=== PATIENT | female | born 1985 | race Caucasian/White ===

== ENCOUNTER 2020-08-21 14:13 | Outpatient (REF) | payer OTHER, SELFPAY ==
[2020-08-21 17:24] LABS: Free T4 (Free Thyroxine) 0.88 ng/dL (0.71-1.85); Thyroid Stimulating Hormone 1.24 uIU/mL (0.32-4.0)
== END 2020-08-21 14:14 | disposition home or self-care (01) ==
LOC: HO.HMGCLDS 14:13
PROVIDERS: PCP Internal Medicine; Visit Provider Internal Medicine Endocrinology, Diabetes & Metabolism
DX: E03.8 Other specified hypothyroidism (principal)
CPT/HCPCS: 36415; 84439; 84443

== ENCOUNTER → 2020-08-27 09:41 | Outpatient (BNVA) | payer OTHER, SELFPAY | PROVIDERS: PCP Internal Medicine; Visit Provider Internal Medicine Endocrinology, Diabetes & Metabolism | DX: E03.8 Other specified hypothyroidism (principal); E06.3 Autoimmune thyroiditis; E66.9 Obesity, unspecified; Z68.38 Body mass index [BMI] 38.0-38.9, adult; L68.0 Hirsutism; Z71.3 Dietary counseling and surveillance | CPT/HCPCS: 99212 ==

== ENCOUNTER 2021-02-12 08:28 | Emergency (ER) | payer OTHER, SELFPAY ==
[2021-02-12 08:46] VITALS: BP 119/78; PULSE 83; RESP 16; TEMP 36.1; O2SAT 98; BMI 39.8
[2021-02-12 09:23] LABS: Glucose Urine UA NEG (NEG); Leukocyte Esterase Urine NEG (NEG); Nitrite Urine NEG (NEG); UACC Culture Trigger NO; Urine Blood 3+ (NEG); Urine Ketones NEG (NEG); Urine Protein NEG (NEG-TRACE)
[2021-02-12 09:24] LABS: Appearance Urine HAZY; Color Urine OTHER
--- NOTE | 2021-02-12 09:24 | ED_ITS ---
HPI - Back Pain/Injury General Chief Complaint: Back Pain/Injury Stated Complaint: back pain Time Seen by Provider: 02/12/21 08:47 Source: patient Limitations: no limitations History of Present Illness HPI Narrative: Patient presents with left-sided lower back pain. The head is atraumatic. Patient has had similar pain in the past and has been lower which he also has. Patient is also currently on her. At this time. Pain is 6/10. No recent falls patient denies loss of bowel movements or urinary incontinence. The pain is a traveled up to the mid to lower back of the left side of the paraspinal muscles. Symptoms are moderate at this time and worsened with twisting movement some nausea no vomiting. No dysuria at this time patient has been fully vaccinated for COVID-19. No other complaints at this time. Related Data Home Medications Medication Instructions Recorded Confirmed escitalopram oxalate 10 mg tablet 10 mg PO DAILY 08/27/20 08/27/20 Previous Rx's Medication Instructions Recorded Levoxyl 137 mcg tablet 137 mcg PO DAILY 30 Days #30 tab NS 08/27/20 (levothyroxine) ibuprofen 600 mg tablet 600 mg PO TID PRN #30 tab 02/12/21 methocarbamol 750 mg tablet 750 mg PO TID PRN #20 tab 02/12/21 Allergies Allergy/AdvReac Type Severity Reaction Status Date / Time codeine [CODEINE] Allergy Mild NAUSEA & Unverified 02/28/20 15:49 VOMITING naproxen [NAPROXEN] Allergy Unknown UNKNOWN Unverified 02/28/20 15:49 Review of Systems Constitutional: Constitutional: Denies body ache(s), Denies chills, Denies fever(s) and Denies headache(s) ENT: Denies headache(s) and Denies nasal obstruction Cardiovascular: Cardiovascular: Denies chest pain and Denies dyspnea Respiratory: Respiratory: Denies cough and Denies dyspnea Gastrointestinal: Gastrointestinal: Reports diarrhea, Reports nausea and Denies vomiting Genitourinary: Genitourinary: Denies urinary incontinence, Denies urinary hesitancy, Denies urinary urgency and Reports vaginal discharge (Positive menses at this time) Musculoskeletal: Comments: Left-sided back pain. Neurologic: Denies headache(s) [facility] Past Medical History Attestation statement: The following information was validated with the patient. Medical History Asthma Hirsutism History of IBS Hypothyroidism Obesity (BMI 30-39.9) Surgical History Previous section Social History Social History Advance Directives: No Advance Directives Information Provided: No Patient : No Physical Exam Vital Signs: Vital Signs: Last Vital Signs Temp 96.9 F 02/12/21 08:46 Pulse 83 02/12/21 08:46 Resp 16 02/12/21 08:46 BP 119/78 02/12/21 08:46 Pulse Ox 98 02/12/21 08:46 Body Mass Index 39.8 vital signs have been reviewed as normal and appeared to be correct. Blood pressure normal. Heart rate normal. Respiration rate normal. Temperature normal. Oxygen saturation normal. Appearance: Alert. Oriented X3. No acute distress. Head: Normal external exam. Normocephalic. Atraumatic. Eyes: PERRLA. EOMI. Conjunctiva and sclera normal. Eyelids normal. ENT: Pharynx normal. Uvula midline. Moist mucous membranes. Neck: Soft full range of motion CVS: Heart regular rate and rhythm no murmurs and rubs Respiratory: Breath sounds are clear to auscultation bilaterally. No accessory muscle use noted. Abdomen: Soft nontender no rebound or guarding positive bowel sounds Back: Positive paraspinal muscle tenderness of the left side lumbar spine no midline tenderness pain increases with range of motion negative straight leg raise on the left. Skin: Skin warm and dry. Normal skin color. Normal skin turgor. No rashes/lesions/lacerations noted. Extremities: No lower extremity edema. Extremities exhibit normal range of motion. Extremities nontender. Neuro: Oriented X 3. No motor deficit. No sensory deficit. Reflexes normal. Course Course Course Narrative: Left-sided lumbar strain Sciatica Disc disease Early pyelonephritis versus UTI less likely Dysmenorrhea Symptoms consistent with muscle skeletal pain. UA pending. A 30 mg Toradol IM UA negative for any signs of UTI at this time positive blood secondary to menses. Will treat patient for muscle skeletal pain at this time. MDM - Back Pain/Injury Lab Data Labs: Lab Results 02/12/21 02/12/21 Range/Units 09:10 09:10 Urine Color OTHER Urine Appearance HAZY Urine pH 6.0 (5.0-8.0) Ur Specific [place] 1.010 (1.005-1.025) Urine Protein NEG (NEG-TRACE) MG/DL Urine Glucose (UA) NEG (NEG) MG/DL Urine Ketones NEG (NEG) MG/DL Urine Blood 3+ H (NEG) Urine Nitrite NEG (NEG) Ur Leukocyte Esterase NEG (NEG) Urine RBC 76-150 H (0) /HPF Urine WBC 0-2 (0-4) /HPF Ur Squamous Epith Cells TRACE /LPF Urine Bacteria TRACE /LPF Urine Test NEGATIVE (NEGATIVE) Discharge Plan Discharge Clinical Impression: Lumbar strain Patient Disposition: Home, Self-Care Instructions: Acute Low Back Pain (ED) Additional Instructions: Your symptoms are consistent with musculoskeletal pain and muscle spasm Prescriptions: New methocarbamol 750 mg tablet 750 mg PO TID PRN (Reason: pain) Qty: 20 RF: 0 ibuprofen 600 mg tablet 600 mg PO TID PRN (Reason: pain) Qty: 30 RF: 0 No Action escitalopram oxalate 10 mg tablet 10 mg PO DAILY RF: 0 levothyroxine [Levoxyl] 137 mcg tablet 137 mcg PO DAILY 30 Days Qty: 30 RF: 8
[2021-02-12 09:28] LABS: UPreg QC Valid YES; Urine Pregnancy NEGATIVE (NEGATIVE)
[2021-02-12] MEDS: Ketorolac Tromethamine 15 MG/ML VIAL 30 MG IM (09:29)
[2021-02-12 09:32] LABS: Bacteria Urine TRACE /LPF; Squamous Epithelial Cell Urine TRACE /LPF; WBC Urine 0-2 /HPF (0-4)
== END 2021-02-12 09:48 | disposition home or self-care (01) ==
PROVIDERS: Physician Assistant; Emergency Provider Emergency Medicine; PCP Internal Medicine
DX: S39.012A Strain of muscle, fascia and tendon of lower back, initial encounter (principal); X58.XXXA Exposure to other specified factors, initial encounter; Y93.9 Activity, unspecified; Y92.9 Unspecified place or not applicable; Y99.9 Unspecified external cause status; Z79.899 Other long term (current) drug therapy
CPT/HCPCS: 81001; 81025; 96372; 99284; J1885

== ENCOUNTER 2021-05-16 08:53 | Outpatient (REF) | payer OTHER, SELFPAY | END 2021-05-16 08:54 | disposition home or self-care (01) | LOC: HO.LAB 08:53 | PROVIDERS: PCP Internal Medicine; Visit Provider Internal Medicine | DX: Z13.89 Encounter for screening for other disorder (principal) ==

== ENCOUNTER 2021-05-23 07:50 | Outpatient (REF) | payer OTHER, SELFPAY ==
[2021-05-23 09:28] LABS: Glucose Fasting 105 mg/dL (60-99)
[2021-05-23 09:35] LABS: Alanine Aminotransferase 37 U/L (0-31); Albumin Level 3.9 g/dL (3.5-5.0); Alkaline Phosphatase 116 U/L (39-117); Anion Gap 10 (12-20); Aspartate Amino Transferase 25 U/L (5-31); Bilirubin Total 0.4 mg/dL (0.0-1.0); Blood Urea Nitrogen 10 mg/dL (9-16); Carbon Dioxide 25 mmol/L (22-29); Chloride 107 mmol/L (96-108); Cholesterol 183 mg/dL; Estimated Glomerular Filt Rate > 60; Glucose Random 106 mg/dL (60-115); HDL Cholesterol 28 mg/dL; LDL Cholesterol Calculated 133 mg/dl; Potassium 4.4 mmol/L (3.3-5.1); Sodium 138 mmol/L (135-145); Total Protein 6.8 g/dL (6.5-8.0); Triglycerides 110 mg/dL
[2021-05-23 10:00] LABS: Estimated Average Glucose 103 mg/dL; Hemoglobin A1c % 5.2 %
[2021-05-23 10:30] LABS: Free T4 (Free Thyroxine) 1.07 ng/dL (0.71-1.85); HCG Quantitative < 2 mIU/mL; Thyroid Stimulating Hormone 0.76 uIU/mL (0.32-4.0)
[2021-05-23 11:03] LABS: Vitamin D 25-OH Total 16.5 ng/mL (>30)
[2021-05-23 11:36] LABS: Cortisol Random 8.2 ug/dL
[2021-05-24 07:36] LABS: LDL Cholesterol Direct 143 mg/dL (<100)
[2021-05-24 08:16] LABS: Follicle Stimulating Hormone 3.8 mIU/mL; Lutenizing Hormone 6.8 mIU/mL; Prolactin 7.6 ng/mL
[2021-05-25 20:57] LABS: Adrenocorticotropic Hormone 19 pg/mL (6-50)
[2021-05-26 21:21] LABS: DHEA Sulfate 192 mcg/dL (23-266); Sex Hormone Binding Globulin 25 nmol/L (17-124)
[2021-05-28 09:41] LABS: Testosterone, Free 6.3 pg/mL (0.1-6.4); Testosterone, Total 34 ng/dL (2-45)
[2021-06-03 18:30] LABS: Androstenedione 119 ng/dL
[2021-06-04 04:26] LABS: Estradiol Free 1.99 pg/mL; Estradiol, Ultrasensitive 85 pg/mL
== END 2021-05-23 07:51 | disposition home or self-care (01) ==
LOC: HO.LAB 07:50
PROVIDERS: PCP Internal Medicine; Visit Provider Internal Medicine
DX: L68.0 Hirsutism (principal); E55.9 Vitamin D deficiency, unspecified
CPT/HCPCS: 36415; 80053; 80061; 82024; 82157; 82306; 82533; 82627; 82670; 82681; 83001; 83002; 83036; 83498; 83721; 84146; 84270; 84402; 84403; 84439; 84443; 84702

== ENCOUNTER → 2021-09-04 08:53 | Outpatient (BNVA) | payer OTHER, SELFPAY | PROVIDERS: PCP Internal Medicine; Visit Provider Internal Medicine Endocrinology, Diabetes & Metabolism | DX: E03.8 Other specified hypothyroidism (principal); E06.3 Autoimmune thyroiditis; L68.0 Hirsutism; E66.9 Obesity, unspecified; Z68.41 Body mass index [BMI] 40.0-44.9, adult; Z79.899 Other long term (current) drug therapy | CPT/HCPCS: 99212 ==

== ENCOUNTER → 2021-12-04 08:51 | Outpatient (BNVA) | payer OTHER, SELFPAY | PROVIDERS: PCP Internal Medicine; Visit Provider Internal Medicine Endocrinology, Diabetes & Metabolism | DX: E06.3 Autoimmune thyroiditis (principal); E66.9 Obesity, unspecified; E03.8 Other specified hypothyroidism; L68.0 Hirsutism; Z68.41 Body mass index [BMI] 40.0-44.9, adult | CPT/HCPCS: 99212 ==

== ENCOUNTER 2022-01-13 16:04 | Emergency (ER) | payer OTHER, SELFPAY ==
--- NOTE | ~2022-01-13 | CT_ITS ---
EXAMINATION: CT SOFT TISSUE NECK WITH CONTRAST CLINICAL INFORMATION: Neck pain COMPARISON: None TECHNIQUE: Following the intravenous administration of 100 mL of Omnipaque 350 intravenous contrast, helical imaging was performed in the axial plane with generation of coronal and sagittal reformatted images. This CT examination was performed using dose optimization techniques as appropriate, variously including the following: *Automated exposure control *Adjustment of mA and/or kV according to patient size (this includes techniques or standardized protocols for targeted exams where dose is matched to indication/reason for exam; i.e. extremities or head) *Use of iterative reconstruction technique DLP: 912 mGy-cm FINDINGS: There is mild prevertebral edema. Globular calcifications in the right prevertebral space just inferior to the anterior arch of C1 likely reflects hydroxyapatite deposition in the setting of calcific tendinitis of the longus coli. Mildly prominent bilateral cervical lymph nodes which are not enlarged by size criteria The parotid glands are homogeneous in attenuation. The submandibular glands are normal. No contour abnormality or pathologic enhancement is seen within the oral cavity or pharyngeal mucosal space. The laryngeal structures are normal. The parapharyngeal fat is preserved. The carotid sheath vasculature opacify normally. No extra mucosal soft tissue mass or fluid collection is seen. The thyroid gland is normal. The superior mediastinum is unremarkable. The lung apices are clear. The mastoid air cells are clear. Trace maxillary sinus mucosal thickening. The temporomandibular joints are normal. No periapical disease is identified. No osseous abnormalities are seen. The imaged portions of the brain parenchyma are unremarkable. 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
[2022-01-13 17:33] VITALS: BP 141/84; PULSE 80; RESP 16; TEMP 36.4; O2SAT 100; BMI 40.7
[2022-01-13 20:30] LABS: MANUAL DIFF FLAG NO
[2022-01-13 20:33] LABS: Basophils Absolute Auto 0.1 X10*3/uL (0.0-0.2); Basophils Percent Auto 0.3 % (0-2); Eosinophils Absolute Auto 0.4 X10*3/uL (0.0-0.4); Eosinophils Percent Auto 2.3 % (0-4); Hematocrit 41.2 % (37.0-47.0); Hemoglobin 13.8 g/dl (12.0-16.0); Imm Gran Abs Auto 0.12 X10*3/uL (0.00-0.03); Imm Gran Pct Auto 0.7 % (0.0-0.4); Lymphocytes Absolute Auto 4.4 X10*3/uL (1.2-4.9); Mean Corpuscular HGB Conc 33.5 g/dl (31.0-35.0); Mean Corpuscular Hemoglobin 30.1 pg (27.0-33.0); Mean Platelet Volume 10.4 fL (9.4-12.3); Monocytes Percent Auto 5.6 % (2-11); Neutrophils Absolute Auto 12.3 x10*3/uL (2.0-8.3); Neutrophils Percent Auto 67.1 % (45-73); Platelet Count 215 X10*3/uL (160-400); Red Blood Count 4.58 X10*6/uL (4.20-5.50); Red Cell Distribution Width 12.4 % (11.0-16.0); White Blood Count 18.4 X10*3/uL (4.8-10.8)
[2022-01-13 20:46] LABS: Anion Gap 12 (12-20); Blood Urea Nitrogen 10 mg/dL (9-16); Calcium 8.7 mg/dL (8.4-10.2); Carbon Dioxide 27 mmol/L (22-29); Chloride 105 mmol/L (96-108); Creatinine Clr Calc Pharmacy 101.2; Estimated Glomerular Filt Rate > 60; Glucose Random 135 mg/dL (60-115); Sodium 140 mmol/L (135-145)
[2022-01-13 20:47] LABS: COVID-19 Test Negative (Negative)
[2022-01-13] MEDS: Acetaminophen 325 MG TABLET 650 MG PO (21:38)
--- NOTE | 2022-01-13 22:59 | ED_ITS ---
HPI - General Adult General Chief complaint: General Medical Stated complaint: neck pain right side Time Seen by Provider: 01/13/22 22:46 History of Present Illness HPI narrative: Patient is a 36-year-old female presents today with having right-sided neck pain. The pain is worse with turning her head to right. No pain when she turns to the left. There is no change in her speech. There is no difficulty swallowing. There is no change in breathing. Patient is from home no history of similar pain in the past. No coughing no congestion or upper respiratory symptoms. No diaphoresis. No chest pain or shortness of breath. No pain on movement of the arm. No headache. No fever Related Data Home Medications Medication Instructions Recorded Confirmed escitalopram oxalate 10 mg tablet 10 mg PO DAILY 08/27/20 09/04/21 Previous Rx's Medication Instructions Recorded ibuprofen 600 mg tablet 600 mg PO TID PRN pain #30 tabs 02/12/21 methocarbamol 750 mg tablet 750 mg PO TID PRN pain #20 tabs 02/12/21 Levoxyl 137 mcg tablet 137 mcg PO DAILY 30 days #30 tabs 12/04/21 (levothyroxine) liraglutide (weight loss) 3 mg/0.5 0.6 mg (0.1 mL) subcut DAILY #15 mL 12/04/21 mL (18 mg/3 mL) subcut pen injector (Saxenda) lorazepam 0.5 mg tablet (Ativan) 0.5 mg PO TID PRN spasms 3 days 01/14/22 #10 tabs Allergies Allergy/AdvReac Type Severity Reaction Status Date / Time codeine [CODEINE] Allergy Mild NAUSEA & Unverified 01/13/22 17:29 VOMITING naproxen [NAPROXEN] Allergy Unknown UNKNOWN Unverified 09/04/21 08:56 Review of Systems Review of Systems: Positive neck pain on the right side Yes all other systems are reviewed and are negative [facility] Past Medical History Attestation statement: The following information was validated with the patient. Medical History Asthma Hirsutism History of IBS Hypothyroidism Obesity (BMI 30-39.9) Vitamin D deficiency Surgical History Previous section Family History Family History Paternal Grandmother Thyroid disease Father Hypertension Lung cancer Social History Social History Alcohol intake: current Alcohol intake frequency: holidays/special occasions only Alcohol type: beer and wine Patient Tobacco Use Status: Current everyday Tobacco user Cigarette Packs Per Day: 0.5 Use of substances other than those prescribed or required for medical reasons: No Advance Directives: No Advance Directives Information Provided: No Patient : No Physical Exam ED Vital Signs: Vital Signs - 24 hr 01/13/22 17:33 01/13/22 23:23 Temperature 97.5 F 98.1 F Pulse Rate 80 69 Respiratory Rate 16 18 Blood Pressure 141/84 H 117/61 Pulse Oximetry 100 96 Oxygen Delivery Method Room Air Room Air BMI result Body Mass Index 40.7 Appearance: Alert. Oriented X3. No acute distress. Eyes: Pupils equal, round and reactive to light. ENT: Pharynx normal. Posterior pharynx is normal tonsils not enlarged Neck: Normal inspection. Neck supple. No lymph nodes noted. No crepitus. No mass palpable pain on turning the head to the right. No pain on turning the head to the left. CVS: Normal heart rate and rhythm. Pulses normal. Normal S1 and S2 Respiratory: No respiratory distress. Breath sounds normal. No Wheezing. No rales Abdomen: Soft and nontender. No rigidity. No distention. good BS x4 Skin: Skin warm and dry. Normal skin color. Normal skin turgor. Extremities: No lower extremity edema. Neurovascular intact to all extremities. No Lacerations. No Rash Neuro: Oriented X 3. No motor deficit. No sensory deficit. Moving all extermities. No slurred speech Medical Decision Making MDM Narrative Medical decision making narrative: Patient well appearing no acute distress complaining of pain to the right side of her neck worse with movement. No pain on flexion extension of the neck. No fever no chills no headache not consistent with meningitis. Patient had a white count of 18 has pain on the side of the neck. Exam was unremarkable. A CT scan of the soft tissue neck did not show any acute evidence of abscess perforation. No fluid collection. Will have patient use Motrin for pain. Follow up on an outpatient basis. Question torticollis. In stable condition. Lab Data Lab results reviewed: Yes I reviewed the patient's lab results. Result diagrams: 01/13/22 20:24 01/13/22 20:24 Labs: Lab Results 01/13/22 01/13/22 01/13/22 Range/Units 20:24 20:24 20:24 WBC 18.4 H (4.8-10.8) X10*3/uL RBC 4.58 (4.20-5.50) X10*6/uL Hgb 13.8 (12.0-16.0) g/dl Hct 41.2 (37.0-47.0) % MCV 90.0 (80.0-98.0) fL MCH 30.1 (27.0-33.0) pg MCHC 33.5 (31.0-35.0) g/dl RDW 12.4 (11.0-16.0) % Plt Count 215 (160-400) X10*3/uL MPV 10.4 (9.4-12.3) fL Immature Gran % (Auto) 0.7 H (0.0-0.4) % Neut % (Auto) 67.1 (45-73) % Lymph % (Auto) 24.0 (20-40) % [place] % (Auto) 5.6 (2-11) % Eos % (Auto) 2.3 (0-4) % Baso % (Auto) 0.3 (0-2) % Lymph # (Auto) 4.4 (1.2-4.9) X10*3/uL [place] # (Auto) 1.0 (0.1-1.2) X10*3/uL Eos # (Auto) 0.4 (0.0-0.4) X10*3/uL Baso # (Auto) 0.1 (0.0-0.2) X10*3/uL Abs Immat Gran (auto) 0.12 H (0.00-0.03) X10*3/uL Absolute Neuts (auto) 12.3 H (2.0-8.3) x10*3/uL Absolute Nucleated RBC 0.000 (0.0-0.012) X10*3/uL Nucleated RBC % (auto) 0.0 (0.0-0.2) /100WBC Sodium 140 (135-145) mmol/L Potassium 4.0 (3.3-5.1) mmol/L Chloride 105 (96-108) mmol/L Carbon Dioxide 27 (22-29) mmol/L Anion Gap 12 (12-20) BUN 10 (9-16) mg/dL Creatinine 0.87 (0.5-1.4) mg/dL Estim Creat Clear Calc 101.2 Estimated GFR > 60 Random Glucose 135 H (60-115) mg/dL Calcium 8.7 (8.4-10.2) mg/dL Beta HCG, Quant < 2 mIU/mL Urine Color Urine Appearance Urine pH (5.0-8.0) Ur Specific [place] (1.005-1.025) Urine Protein (NEG-TRACE) MG/DL Urine Glucose (UA) (NEG) MG/DL Urine Ketones (NEG) MG/DL Urine Blood (NEG) Urine Nitrite (NEG) Ur Leukocyte Esterase (NEG) COVID-19 (CLAUDIA) Negative (Negative) COVID-19 Clin Com See Note Monoscreen (Negative) 01/13/22 01/13/22 Range/Units 20:28 23:28 WBC (4.8-10.8) X10*3/uL RBC (4.20-5.50) X10*6/uL Hgb (12.0-16.0) g/dl Hct (37.0-47.0) % MCV (80.0-98.0) fL MCH (27.0-33.0) pg MCHC (31.0-35.0) g/dl RDW (11.0-16.0) % Plt Count (160-400) X10*3/uL MPV (9.4-12.3) fL Immature Gran % (Auto) (0.0-0.4) % Neut % (Auto) (45-73) % Lymph % (Auto) (20-40) % [place] % (Auto) (2-11) % Eos % (Auto) (0-4) % Baso % (Auto) (0-2) % Lymph # (Auto) (1.2-4.9) X10*3/uL [place] # (Auto) (0.1-1.2) X10*3/uL Eos # (Auto) (0.0-0.4) X10*3/uL Baso # (Auto) (0.0-0.2) X10*3/uL Abs Immat Gran (auto) (0.00-0.03) X10*3/uL Absolute Neuts (auto) (2.0-8.3) x10*3/uL Absolute Nucleated RBC (0.0-0.012) X10*3/uL Nucleated RBC % (auto) (0.0-0.2) /100WBC Sodium (135-145) mmol/L Potassium (3.3-5.1) mmol/L Chloride (96-108) mmol/L Carbon Dioxide (22-29) mmol/L Anion Gap (12-20) BUN (9-16) mg/dL Creatinine (0.5-1.4) mg/dL Estim Creat Clear Calc Estimated GFR Random Glucose (60-115) mg/dL Calcium (8.4-10.2) mg/dL Beta HCG, Quant mIU/mL Urine Color YELLOW Urine Appearance HAZY Urine pH 6.0 (5.0-8.0) Ur Specific [place] >= 1.030 H (1.005-1.025) Urine Protein NEG (NEG-TRACE) MG/DL Urine Glucose (UA) NEG (NEG) MG/DL Urine Ketones NEG (NEG) MG/DL Urine Blood NEG (NEG) Urine Nitrite NEG (NEG) Ur Leukocyte Esterase NEG (NEG) COVID-19 (CLAUDIA) (Negative) COVID-19 Clin Com Monoscreen Negative (Negative) Discharge Plan Discharge Clinical Impression: Torticollis Patient Disposition: Home, Self-Care Instructions: Spasmodic Torticollis (ED) Prescriptions: New lorazepam [Ativan] 0.5 mg tablet 0.5 mg PO TID PRN (Reason: spasms) 3 Days Qty: 10 0RF No Action methocarbamol 750 mg tablet 750 mg PO TID PRN (Reason: pain) Qty: 20 0RF ibuprofen 600 mg tablet 600 mg PO TID PRN (Reason: pain) Qty: 30 0RF escitalopram oxalate 10 mg tablet 10 mg PO DAILY Saxenda 3 mg/0.5 mL (18 mg/3 mL) pen injector 0.6 mg subcut DAILY Qty: 15 2RF levothyroxine [Levoxyl] 137 mcg tablet 137 mcg PO DAILY 30 Days Qty: 30 8RF Rx Instructions: Dispense as written, brand medically necessary. Do not substitute. Referrals: Ibeth Betancourt MD [Primary Care Provider] -
[2022-01-13] MEDS: HYDROmorphone HCl 0.5 MG/0.5 ML SYRINGE IVPUSH (23:19)
[2022-01-13] MEDS: 0.9 % Sodium Chloride 1,000 ML 999 ML IV (23:20)
[2022-01-13 23:22] LABS: Monotest Negative (Negative)
[2022-01-13 23:23] VITALS: BP 117/61; PULSE 69; RESP 18; TEMP 36.7; O2SAT 96
[2022-01-13 23:28] LABS: HCG Quantitative < 2 mIU/mL
[2022-01-13 23:37] LABS: Appearance Urine HAZY; Color Urine YELLOW; Glucose Urine UA NEG (NEG); Leukocyte Esterase Urine NEG (NEG); Nitrite Urine NEG (NEG); Specific Gravity - Urine >= 1.030 (1.005-1.025); Urine Blood NEG (NEG); Urine Ketones NEG (NEG); Urine Protein NEG (NEG-TRACE)
[2022-01-14] MEDS: iohexoL 350 MG/ML 100 ML INFUS..BTL IV (00:41)
--- NOTE | 2022-01-14 01:51 | ED.GENADULT ---
HPI - General Adult General Chief complaint: General Medical Stated complaint: neck pain right side Time Seen by Provider: 01/13/22 22:46 Related Data Home Medications Medication Instructions Recorded Confirmed escitalopram oxalate 10 mg tablet 10 mg PO DAILY 08/27/20 09/04/21 Previous Rx's Medication Instructions Recorded ibuprofen 600 mg tablet 600 mg PO TID PRN pain #30 tabs 02/12/21 methocarbamol 750 mg tablet 750 mg PO TID PRN pain #20 tabs 02/12/21 Levoxyl 137 mcg tablet 137 mcg PO DAILY 30 days #30 tabs 12/04/21 (levothyroxine) liraglutide (weight loss) 3 mg/0.5 0.6 mg (0.1 mL) subcut DAILY #15 mL 12/04/21 mL (18 mg/3 mL) subcut pen injector (Saxenda) ibuprofen 400 mg tablet 400 mg PO Q6H PRN pain #20 tabs 01/14/22 lorazepam 0.5 mg tablet (Ativan) 0.5 mg PO TID PRN spasms 3 days 01/14/22 #10 tabs Allergies Allergy/AdvReac Type Severity Reaction Status Date / Time codeine [CODEINE] Allergy Mild NAUSEA & Unverified 01/13/22 17:29 VOMITING naproxen [NAPROXEN] Allergy Unknown UNKNOWN Unverified 09/04/21 08:56 [facility] Past Medical History Medical History Asthma Hirsutism History of IBS Hypothyroidism Obesity (BMI 30-39.9) Vitamin D deficiency Surgical History Previous section Family History Family History Paternal Grandmother Thyroid disease Father Hypertension Lung cancer Social History Social History Alcohol intake: current Alcohol intake frequency: holidays/special occasions only Alcohol type: beer and wine Patient Tobacco Use Status: Current everyday Tobacco user Cigarette Packs Per Day: 0.5 Use of substances other than those prescribed or required for medical reasons: No Advance Directives: No Advance Directives Information Provided: No Patient : No Physical Exam ED Vital Signs: Vital Signs - 24 hr 08/03/22 17:33 01/13/22 23:23 Temperature 97.5 F 98.1 F Pulse Rate 80 69 Respiratory Rate 16 18 Blood Pressure 141/84 H 117/61 Pulse Oximetry 100 96 Oxygen Delivery Method Room Air Room Air BMI result Body Mass Index 40.7 Medical Decision Making Lab Data Result diagrams: 01/13/22 20:24 01/13/22 20:24 Labs: Lab Results 01/13/22 01/13/22 01/13/22 Range/Units 20:24 20:24 20:24 WBC 18.4 H (4.8-10.8) X10*3/uL RBC 4.58 (4.20-5.50) X10*6/uL Hgb 13.8 (12.0-16.0) g/dl Hct 41.2 (37.0-47.0) % MCV 90.0 (80.0-98.0) fL MCH 30.1 (27.0-33.0) pg MCHC 33.5 (31.0-35.0) g/dl RDW 12.4 (11.0-16.0) % Plt Count 215 (160-400) X10*3/uL MPV 10.4 (9.4-12.3) fL Immature Gran % (Auto) 0.7 H (0.0-0.4) % Neut % (Auto) 67.1 (45-73) % Lymph % (Auto) 24.0 (20-40) % [place] % (Auto) 5.6 (2-11) % Eos % (Auto) 2.3 (0-4) % Baso % (Auto) 0.3 (0-2) % Lymph # (Auto) 4.4 (1.2-4.9) X10*3/uL [place] # (Auto) 1.0 (0.1-1.2) X10*3/uL Eos # (Auto) 0.4 (0.0-0.4) X10*3/uL Baso # (Auto) 0.1 (0.0-0.2) X10*3/uL Abs Immat Gran (auto) 0.12 H (0.00-0.03) X10*3/uL Absolute Neuts (auto) 12.3 H (2.0-8.3) x10*3/uL Absolute Nucleated RBC 0.000 (0.0-0.012) X10*3/uL Nucleated RBC % (auto) 0.0 (0.0-0.2) /100WBC Sodium 140 (135-145) mmol/L Potassium 4.0 (3.3-5.1) mmol/L Chloride 105 (96-108) mmol/L Carbon Dioxide 27 (22-29) mmol/L Anion Gap 12 (12-20) BUN 10 (9-16) mg/dL Creatinine 0.87 (0.5-1.4) mg/dL Estim Creat Clear Calc 101.2 Estimated GFR > 60 Random Glucose 135 H (60-115) mg/dL Calcium 8.7 (8.4-10.2) mg/dL Beta HCG, Quant < 2 mIU/mL Urine Color Urine Appearance Urine pH (5.0-8.0) Ur Specific [place] (1.005-1.025) Urine Protein (NEG-TRACE) MG/DL Urine Glucose (UA) (NEG) MG/DL Urine Ketones (NEG) MG/DL Urine Blood (NEG) Urine Nitrite (NEG) Ur Leukocyte Esterase (NEG) COVID-19 (CLAUDIA) Negative (Negative) COVID-19 Clin Com See Note Monoscreen (Negative) 01/13/22 01/13/22 Range/Units 20:28 23:28 WBC (4.8-10.8) X10*3/uL RBC (4.20-5.50) X10*6/uL Hgb (12.0-16.0) g/dl Hct (37.0-47.0) % MCV (80.0-98.0) fL MCH (27.0-33.0) pg MCHC (31.0-35.0) g/dl RDW (11.0-16.0) % Plt Count (160-400) X10*3/uL MPV (9.4-12.3) fL Immature Gran % (Auto) (0.0-0.4) % Neut % (Auto) (45-73) % Lymph % (Auto) (20-40) % [place] % (Auto) (2-11) % Eos % (Auto) (0-4) % Baso % (Auto) (0-2) % Lymph # (Auto) (1.2-4.9) X10*3/uL [place] # (Auto) (0.1-1.2) X10*3/uL Eos # (Auto) (0.0-0.4) X10*3/uL Baso # (Auto) (0.0-0.2) X10*3/uL Abs Immat Gran (auto) (0.00-0.03) X10*3/uL Absolute Neuts (auto) (2.0-8.3) x10*3/uL Absolute Nucleated RBC (0.0-0.012) X10*3/uL Nucleated RBC % (auto) (0.0-0.2) /100WBC Sodium (135-145) mmol/L Potassium (3.3-5.1) mmol/L Chloride (96-108) mmol/L Carbon Dioxide (22-29) mmol/L Anion Gap (12-20) BUN (9-16) mg/dL Creatinine (0.5-1.4) mg/dL Estim Creat Clear Calc Estimated GFR Random Glucose (60-115) mg/dL Calcium (8.4-10.2) mg/dL Beta HCG, Quant mIU/mL Urine Color YELLOW Urine Appearance HAZY Urine pH 6.0 (5.0-8.0) Ur Specific [place] >= 1.030 H (1.005-1.025) Urine Protein NEG (NEG-TRACE) MG/DL Urine Glucose (UA) NEG (NEG) MG/DL Urine Ketones NEG (NEG) MG/DL Urine Blood NEG (NEG) Urine Nitrite NEG (NEG) Ur Leukocyte Esterase NEG (NEG) COVID-19 (CLAUDIA) (Negative) COVID-19 Clin Com Monoscreen Negative (Negative) Discharge Plan Discharge Clinical Impression: Torticollis Patient Disposition: Home, Self-Care Instructions: Spasmodic Torticollis (ED) Prescriptions: New lorazepam [Ativan] 0.5 mg tablet 0.5 mg PO TID PRN (Reason: spasms) 3 Days Qty: 10 0RF ibuprofen 400 mg tablet 400 mg PO Q6H PRN (Reason: pain) Qty: 20 0RF No Action methocarbamol 750 mg tablet 750 mg PO TID PRN (Reason: pain) Qty: 20 0RF ibuprofen 600 mg tablet 600 mg PO TID PRN (Reason: pain) Qty: 30 0RF escitalopram oxalate 10 mg tablet 10 mg PO DAILY Saxenda 3 mg/0.5 mL (18 mg/3 mL) pen injector 0.6 mg subcut DAILY Qty: 15 2RF levothyroxine [Levoxyl] 137 mcg tablet 137 mcg PO DAILY 30 Days Qty: 30 8RF Rx Instructions: Dispense as written, brand medically necessary. Do not substitute. Referrals: Ibeth Betancourt MD [Primary Care Provider] -
[2022-01-14] MEDS: LORazepam 1 MG TABLET PO (02:00)
[2022-01-14] MEDS: Ibuprofen 600 MG TABLET PO (02:08)
== END 2022-01-14 02:24 | disposition home or self-care (01) ==
PROVIDERS: Emergency Provider Emergency Medicine Emergency Medical Services; PCP Internal Medicine
DX: M54.2 Cervicalgia (principal); F17.210 Nicotine dependence, cigarettes, uncomplicated; Z71.6 Tobacco abuse counseling; Z20.822 Contact with and (suspected) exposure to COVID-19; Z79.899 Other long term (current) drug therapy
CPT/HCPCS: 70491; 80048; 81003; 84702; 85025; 86308; 87635; 96361; 96374; 99284; J1170; Q9967

== ENCOUNTER 2022-07-20 15:48 | Outpatient (REF) | payer OTHER, SELFPAY ==
[2022-07-20 17:54] LABS: Thyroid Stimulating Hormone 1.13 uIU/mL (0.32-4.0)
== END 2022-07-20 15:49 | disposition home or self-care (01) ==
LOC: HO.LAB 15:48
PROVIDERS: PCP Internal Medicine; Visit Provider Internal Medicine Endocrinology, Diabetes & Metabolism
DX: E03.8 Other specified hypothyroidism (principal); E06.3 Autoimmune thyroiditis; E28.2 Polycystic ovarian syndrome; L68.0 Hirsutism; E66.9 Obesity, unspecified
CPT/HCPCS: 36415; 84439; 84443; 99212

== ENCOUNTER 2023-09-12 16:45 | Outpatient (REF) | payer BC, SELFPAY ==
[2023-09-12 18:28] LABS: Free T4 (Free Thyroxine) 1.03 ng/dL (0.71-1.85); Thyroid Stimulating Hormone 0.66 uIU/mL (0.32-4.0)
== END 2023-09-12 16:46 | disposition home or self-care (01) ==
LOC: HO.LAB 16:45
PROVIDERS: PCP Internal Medicine; Visit Provider Internal Medicine Endocrinology, Diabetes & Metabolism
DX: E03.8 Other specified hypothyroidism (principal); E06.3 Autoimmune thyroiditis
CPT/HCPCS: 36415; 84439; 84443

== ENCOUNTER 2023-09-14 16:12 | Outpatient (AMB) | payer BC, SELFPAY ==
--- NOTE | 2023-09-14 16:17 | MHC.OFFVIS ---
Intake Vital Signs 09/14/23 16:18 Height 5 ft 3 in Weight 232 lb 12.93 oz BMI 41.2 BP 112/68 Blood Pressure Location Rt brachial Position Sitting Pulse 76 Pulse Source Pulse Oximeter Intake Visit Reasons: Hypothyroidism/obesity Intake Note: Patient present today for Hypothyroidism and obesity follow up visit. Quality Eng Required: No Accompanied by: Self / Same As Patient Allergies codeine [CODEINE] Allergy (Mild, Verified 09/14/23 16:19) NAUSEA & VOMITING naproxen [NAPROXEN] Allergy (Unknown, Verified 09/14/23 16:19) UNKNOWN Medication List - Last Reconciled 09/14/23 by Ga Sorto MD cholecalciferol (vitamin D3) 25 mcg PO DAILY citalopram 20 mg PO DAILY escitalopram oxalate 10 mg PO DAILY ibuprofen 600 mg PO TID PRN ibuprofen 400 mg PO Q6H PRN Levoxyl (levothyroxine) 137 mcg PO DAILY NS liraglutide (weight loss) (Saxenda) 0.6 mg (0.1 mL) subcut DAILY loratadine 10 mg PO DAILY lorazepam (Ativan) 0.5 mg PO TID PRN 3 days methocarbamol 750 mg PO TID PRN spironolactone 50 mg PO DAILY HPI HPI Comments History of Present Illness Details 38 yo female today for fup visit , for hypothyroidism and weight loss. She is feeling better, She had to stop the oral contraceptive for hirsutism because of smoking and weight. She reports that after she stop the oral contraceptive her terminal her and acne has been getting worse. There is no risk for as her had vasectomy. She was able to lose 6 lb since last visit She tried the topiramate and Phentermine but she states make her depressed and irritable. 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 Workup for hirsutism was consistent with polycystic ovarian syndrome Last visit her TSH was 2.5 and I decided to slightly increase the levothyroxine to 1 tablet Tuesday through Tuesday 1.5 tablets on Sundays She is currently on Levoxyl 137 mcg 100 % compliance with LT 4, method of administration is correct. Denies cold intolerance, stable weight regular periods, denies diarrhea, constipation, insomnia, fatigue, dry skin, dysphagia, dyspnea, dysphonia, tremors, occasional palpitations, denies irritability, anxiety. Laboratory Tests 02/20/20 08/21/20 10:13 14:20 TSH 1.24 Free T4 0.88 TSH 3rd Generation 2.53 Getting menses each mo . On sprinolactone . Helping with hair growth [facility] Medical History Asthma Hirsutism History of IBS Hypothyroidism Obesity (BMI 30-39.9) Vitamin D deficiency Surgical History Previous section Family History Paternal Grandmother Thyroid disease Father Hypertension Lung cancer Social History Household Members: Spouse and Children Household Members Other:: , 3 kids Alcohol intake: current Alcohol intake frequency: holidays/special occasions only Alcohol type: beer and wine Patient Tobacco Use Status: Current everyday Tobacco user Cigarette Packs Per Day: 0.5 Physical Exam Vital Signs: Last Vital Signs Pulse 76 09/14/23 16:18 BP 112/68 09/14/23 16:18 BMI result Body Mass Index 41.2 Const Other: Thyroid gland is of normal size weighs about 15 g . There are no thyroid nodules palpated. There is a moderate amount of acne present on the chin and throughout the face. There is also hair growth present over the lip and on the sideburn region Assessment & Plan Assessment & Plan (1) Hypothyroidism: Code(s): E03.9 - Hypothyroidism, unspecified Qualifiers: Hypothyroidism type: due to Liseth's thyroiditis Qualified Code(s): E03.8 - Other specified hypothyroidism; E06.3 - Autoimmune thyroiditis Plan: This is a 38-year-old female with a history of hypothyroidism currently be replaced on 137 mcg levothyroxine. She appears to be clinically biochemically euthyroid. Plan is to continue current therapy. At this point, patient returned to the care of her primary care provider returned back to endocrinology as needed (2) Hirsutism: Code(s): L68.0 - Hirsutism Plan: Workup is consistent with polycystic ovarian syndrome. Patient was on a control pill was stopped because of smoking. Currently on spironolactone. Initiated by OBGYN Plan is check a basic metabolic panel (3) Obesity (BMI 30-39.9): Code(s): E66.9 - Obesity, unspecified Plan: I prescribed attempted to prescribe Wegovy for weight loss. 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
[2023-09-14 16:18] VITALS: BP 112/68; PULSE 76; BMI 41.2
== END 2023-09-14 16:44 | disposition home or self-care (01) ==
PROVIDERS: PCP Internal Medicine; Visit Provider Internal Medicine Endocrinology, Diabetes & Metabolism
DX: E03.8 Other specified hypothyroidism (principal); E06.3 Autoimmune thyroiditis; L68.0 Hirsutism; E66.9 Obesity, unspecified
CPT/HCPCS: 99213

== ENCOUNTER → 2023-09-14 16:12 | Outpatient (BNVA) | payer BC, SELFPAY | PROVIDERS: PCP Internal Medicine; Visit Provider Internal Medicine Endocrinology, Diabetes & Metabolism ==

== ENCOUNTER 2024-05-27 08:08 | Emergency (ER) | payer BC, SELFPAY ==
--- NOTE | ~2024-05-27 | XR_ITS ---
EXAMINATION: XR CHEST CLINICAL INFORMATION: cough COMPARISON: None available. TECHNIQUE: 2 views of the chest were obtained. FINDINGS: No significant abnormality is noted involving the heart, lungs, mediastinum, bony thorax or soft tissues. XR/XR chest 2V IMPRESSION: Unremarkable examination. Electronically signed by: Anurag Pineda MD 05/27/2024 11:08 AM [facility] [place], [place]
--- NOTE | 2024-05-27 08:11 | ECG_ITS ---
Test Reason : irregular heart rate Blood Pressure : / mmHG Vent. Rate : 088 BPM Atrial Rate : 088 BPM P-R Int : 144 ms QRS Dur : 070 ms QT Int : 344 ms P-R-T Axes : 055 027 019 degrees QTc Int : 416 ms Normal sinus rhythm Normal ECG No previous ECGs available Referred By: Generic ED Physician Electronically Signed By:RYAN MAJOR MD
[2024-05-27 08:15] VITALS: BP 134/84; PULSE 91; RESP 18; TEMP 36.7; O2SAT 98; BMI 38.8
[2024-05-27 08:32] LABS: MANUAL DIFF FLAG NO
--- NOTE | 2024-05-27 08:35 | PC.NURSE ---
Pt SWATHI changed to a level 4 d/t further assessment of patient
[2024-05-27 08:36] LABS: Basophils Absolute Auto 0.1 X10*3/uL (0.0-0.2); Basophils Percent Auto 0.3 % (0-2); Eosinophils Absolute Auto 0.6 X10*3/uL (0.0-0.4); Eosinophils Percent Auto 2.4 % (0-4); Hematocrit 42.4 % (37.0-47.0); Hemoglobin 14.5 g/dl (12.0-16.0); Imm Gran Abs Auto 0.47 X10*3/uL (0.00-0.03); Lymphocytes Absolute Auto 4.1 X10*3/uL (1.2-4.9); Lymphocytes Percent Auto 17.6 % (20-40); Mean Corpuscular HGB Conc 34.2 g/dl (31.0-35.0); Mean Corpuscular Hemoglobin 30.8 pg (27.0-33.0); Mean Platelet Volume 9.7 fL (9.4-12.3); Monocytes Absolute Auto 1.2 X10*3/uL (0.1-1.2); Monocytes Percent Auto 5.2 % (2-11); Neutrophils Absolute Auto 16.8 x10*3/uL (2.0-8.3); Neutrophils Percent Auto 72.5 % (45-73); Platelet Count 275 X10*3/uL (160-400); Red Blood Count 4.71 X10*6/uL (4.20-5.50); Red Cell Distribution Width 12.1 % (11.0-16.0); White Blood Count 23.2 X10*3/uL (4.8-10.8)
[2024-05-27 08:40] LABS: INTERNATIONAL NORM RATIO 0.9 (0.9-1.1); Prothrombin Time 10.5 SEC (10.9-12.4)
--- NOTE | 2024-05-27 08:51 | ED.ARRPALP ---
HPI - Arrhythmia/Palpitations General Chief Complaint: Arrhythmia/Palpitations Stated Complaint: Irregular heart rate Time Seen by Provider: 05/27/24 08:32 Source: patient, EMS and old records reviewed Mode of arrival: EMS Limitations: no limitations History of Present Illness ED Provider: ZHANNA HPI narrative: 38 yo female with PMH of hypothyroidism, obesity, asthma here with c/o having COVID after Thanskgiving she has been vaccinated in the past x 3. This is the most sick she has gotten with COVID. She notes on May 17 she went to who started her on 5 day burst of prednisone and blue inhaler which I suspect was flovent. She notes she did get a little better but still has a terrible cough. On Tuesday the patient notes her HR started to go from 115 to 63 and she was worried about afib. She felt nauseated. There are no triggering events it happens at rest and exertion. She is not on OCPs, she has no CP and feels her breathing is better. She does have some chest wall pain and back pain from all the coughing. MD complaint: palpitations Onset (ago): day(s) (Tuesday) Duration: intermittent Severity: moderate Context: occurred during rest and occurred during exertion Arrhythmia history: other Associated symptoms: nausea Related Data Home Medications ?Medication ?Instructions ?Recorded ?Confirmed escitalopram oxalate 10 mg tablet 10 mg PO DAILY 08/27/20 09/14/23 cholecalciferol (vitamin D3) 25 25 mcg PO DAILY 07/20/22 09/14/23 mcg (1,000 unit) capsule citalopram 20 mg tablet 20 mg PO DAILY 07/20/22 09/14/23 loratadine 10 mg tablet 10 mg PO DAILY 07/20/22 09/14/23 spironolactone 50 mg tablet 50 mg PO DAILY 07/20/22 09/14/23 Previous Rx's ?Medication ?Instructions ?Recorded ibuprofen 600 mg tablet 600 mg PO TID PRN pain #30 tabs 02/12/21 methocarbamol 750 mg tablet 750 mg PO TID PRN pain #20 tabs 02/12/21 ibuprofen 400 mg tablet 400 mg PO Q6H PRN pain #20 tabs 01/14/22 lorazepam 0.5 mg tablet (Ativan) 0.5 mg PO TID PRN spasms 3 days 01/14/22 #10 tabs semaglutide (weight loss) 0.25 0.25 mg (0.5 mL) subcut QWEEK #2 mL 09/14/23 mg/0.5 mL subcutaneous pen injector (Wegovy) Levoxyl 137 mcg tablet 137 mcg PO DAILY #90 tabs 12/05/23 (levothyroxine) Allergies Allergy/AdvReac Type Severity Reaction Status Date / Time codeine [CODEINE] Allergy Mild NAUSEA & Verified 05/27/24 08:16 VOMITING naproxen [NAPROXEN] Allergy Unknown UNKNOWN Verified 05/27/24 08:16 Review of Systems Review of Systems: Constitutional : No Fever, No Chills, No Fatigue ENT/Mouth : No sore throat, No Rhinorrhea Eyes: No Eye Pain, No Swelling, No Redness Cardiovascular : No Chest Pain, No SOB, No Dyspnea on Exertion, pos palpitations Respiratory : pos Cough, No Sputum Gastrointestinal : No Nausea, No Vomiting, No Diarrhea, No abdominal Pain Genitourinary : No Dysuria, No Urinary Frequency, No Hematuria, Musculoskeletal : No joint pain, No Myalgias, No Joint Swelling Skin : No Skin Lesions, No rash Neuro : No Weakness, No Numbness, No Dizziness, no Headache Psych : No Anxiety/Panic, No Depression Heme/Lymph: No Bruising, No Bleeding,No Lymphadenopathy Endocrine : No Polyuria, No Polydipsia All other systems reviewed and are negative [facility] Past Medical History Attestation statement: The following information was validated with the patient. Source: old records reviewed Medical History Vitamin D deficiency Asthma History of IBS Hirsutism Obesity (BMI 30-39.9) Hypothyroidism Surgical History Previous section Family History Family History Paternal Grandmother Thyroid disease Father Hypertension Lung cancer Social History Social History Household Members: Spouse and Children Household Members Other:: , 3 kids Alcohol intake: never Patient Tobacco Use Status: Current everyday Tobacco user Cigarette Packs Per Day: 0.5 Smoked in Last 30 Days: Yes Use of substances other than those prescribed or required for medical reasons: No Advance Directives: No Advance Directives Information Provided: Yes Do you have a plan to hurt others: No Plan Physical Exam Vital Signs: Vital Signs: Last Vital Signs Temp 97.5 F 05/27/24 09:03 Pulse 82 05/27/24 09:03 Resp 18 05/27/24 09:03 BP 127/84 05/27/24 09:03 Pulse Ox 97 05/27/24 09:03 O2 Del Method Room Air 05/27/24 09:03 BMI result Body Mass Index 38.8 Appearance: Alert. Oriented X3. No acute distress. Eyes: Pupils equal, round and reactive to light. ENT: Pharynx normal. Neck: Normal inspection. Neck supple. CVS: Normal heart rate and rhythm. Pulses normal. Respiratory: No respiratory distress. Breath sounds normal. Dry cough Abdomen: Soft and non-tender. Skin: Skin warm and dry. Normal skin color. Extremities: No lower extremity edema. Neuro: Oriented X 3. No motor deficit. No sensory deficit. Course Course Course Narrative: elevated WBC count seems chronic in nature she was also on steroids Medical Decision Making Medical Decision Making MDM Narrative: 38 yo female with PMH of hypothyroidism, obesity, asthma here with c/o COVID after Thanksgiving was treated with prednisone and inh - she does feel her breathing is better but she started with palpitations on Tuesday night - rest and exertion. No new infectious symptoms but she is worried given the HR going from 115 to 63 without any exertion. At this time will obtain basic labs, thyroid level, ddimer, CXR, new viral panel and obtain lytes Differential Diagnosis Differential Diagnoses: The differential diagnosis associated with the presentation includes post COVID tachycardia, thyroid ds, lyte abnormality, VTE, new viral infection, lung pathology Admission/Observation Consideration of admission/observation: Escalation of care including admission/observation considered work up reassuring stable for DC Lab Data [facility] Lab Attestation statement: I reviewed the patient's lab results. 05/27/24 08:29 05/27/24 08:29 Labs: Lab Results 05/27/24 Range/Units 08:29 WBC 23.2 H (4.8-10.8) X10*3/uL RBC 4.71 (4.20-5.50) X10*6/uL Hgb 14.5 (12.0-16.0) g/dl Hct 42.4 (37.0-47.0) % MCV 90.0 (80.0-98.0) fL MCH 30.8 (27.0-33.0) pg MCHC 34.2 (31.0-35.0) g/dl RDW 12.1 (11.0-16.0) % Plt Count 275 D (160-400) X10*3/uL MPV 9.7 (9.4-12.3) fL Immature Gran % (Auto) 2.0 H (0.0-0.4) % Neut % (Auto) 72.5 (45-73) % Lymph % (Auto) 17.6 L (20-40) % [place] % (Auto) 5.2 (2-11) % Eos % (Auto) 2.4 (0-4) % Baso % (Auto) 0.3 (0-2) % Lymph # (Auto) 4.1 (1.2-4.9) X10*3/uL [place] # (Auto) 1.2 (0.1-1.2) X10*3/uL Eos # (Auto) 0.6 H (0.0-0.4) X10*3/uL Baso # (Auto) 0.1 (0.0-0.2) X10*3/uL Abs Immat Gran (auto) 0.47 H (0.00-0.03) X10*3/uL Absolute Neuts (auto) 16.8 H (2.0-8.3) x10*3/uL Absolute Nucleated RBC 0.000 (0.0-0.012) X10*3/uL Nucleated RBC % (auto) 0.0 (0.0-0.2) /100WBC PT 10.5 L (10.9-12.4) SEC INR 0.9 (0.9-1.1) D-Dimer High Sensitivty < 150 NG/ML Sodium 138 (135-145) mmol/L Potassium 4.2 (3.3-5.1) mmol/L Chloride 106 (96-108) mmol/L Carbon Dioxide 27 (22-29) mmol/L Anion Gap 9 L (12-20) BUN 10 (9-16) mg/dL Creatinine 0.76 (0.5-1.4) mg/dL Estim Creat Clear Calc 110.6 Estimated GFR > 60 Random Glucose 127 H (60-115) mg/dL Calcium 9.1 (8.4-10.2) mg/dL Magnesium 1.8 (1.6-2.6) mg/dL Total Bilirubin 0.5 (0.0-1.0) mg/dL AST 23 (5-31) U/L ALT 34 H (0-31) U/L Alkaline Phosphatase 115 (39-117) U/L Troponin I High Sens < 2.7 (<3.5-17.0) ng/L Total Protein 7.3 (6.5-8.0) g/dL Albumin 4.0 (3.5-5.0) g/dL TSH 1.85 (0.32-4.0) uIU/mL Beta HCG, Quant < 2 mIU/mL Independent Interpretation I performed an independent interpretation of an: EKG and Plain X-Ray (normal) Interpretation: Rate: 88 Rhythm: NSR [place]: normal Normal P waves. Normal ZOYA. Normal QRS complex. ST T wave : no LEANDRA, inverted t waves V1 and III qTC: 416 prior studies: no acute ischemia The study has been interpreted contemporaneously by me. . Radiology Impression Discussion of test interpretation with radiology: I have reviewed the radiologist's reading. Independent Historian Clinical information obtained from an independent historian. History obtained from or confirmed by: Spouse External Record Review External record reviewed: Outpatient record Prescription Management I considered prescription management with: Other Discharge Plan Discharge Clinical Impression: Palpitations Patient Disposition: Home, Self-Care Instructions: Heart Palpitations (ED) Additional Instructions: chronic elevation of wbc count also likely made worse with recent steroid hemoglobin normal blood clot test ddimer negative electrolytes, thyroid, cardiac enzyme marker all normal chest xray no pneumonia viral panel you need to call your doctor 1st thing Tuesday and ask for holter monitor return for any worsening symptoms or concerns. Prescriptions: No Action levothyroxine [Levoxyl] 137 mcg tablet 137 mcg PO DAILY Qty: 90 1RF methocarbamol 750 mg tablet 750 mg PO TID PRN (Reason: pain) Qty: 20 0RF ibuprofen 600 mg tablet 600 mg PO TID PRN (Reason: pain) Qty: 30 0RF lorazepam [Ativan] 0.5 mg tablet 0.5 mg PO TID PRN (Reason: spasms) 3 Days Qty: 10 0RF ibuprofen 400 mg tablet 400 mg PO Q6H PRN (Reason: pain) Qty: 20 0RF escitalopram oxalate 10 mg tablet 10 mg PO DAILY spironolactone 50 mg tablet 50 mg PO DAILY cholecalciferol (vitamin D3) 25 mcg (1,000 unit) capsule 25 mcg PO DAILY citalopram 20 mg tablet 20 mg PO DAILY loratadine 10 mg tablet 10 mg PO DAILY Wegovy 0.25 mg/0.5 mL pen injector 0.25 mg subcut QWEEK Qty: 2 4RF Rx Instructions: administer weeks 1 through 4 of therapy Print Language: Yakut
[2024-05-27 08:57] LABS: Alanine Aminotransferase 34 U/L (0-31); Alkaline Phosphatase 115 U/L (39-117); Anion Gap 9 (12-20); Aspartate Amino Transferase 23 U/L (5-31); Bilirubin Total 0.5 mg/dL (0.0-1.0); Blood Urea Nitrogen 10 mg/dL (9-16); Calcium 9.1 mg/dL (8.4-10.2); Carbon Dioxide 27 mmol/L (22-29); Chloride 106 mmol/L (96-108); Creatinine Clr Calc Pharmacy 110.6; Estimated Glomerular Filt Rate > 60; Glucose Random 127 mg/dL (60-115); Magnesium 1.8 mg/dL (1.6-2.6); Potassium 4.2 mmol/L (3.3-5.1); Sodium 138 mmol/L (135-145); Total Protein 7.3 g/dL (6.5-8.0)
[2024-05-27 09:00] LABS: Troponin-I High Sensitivity < 2.7 ng/L (<3.5-17.0)
[2024-05-27 09:01] LABS: HCG Quantitative < 2 mIU/mL
[2024-05-27 09:02] LABS: D Dimer High Sensitivity < 150 NG/ML
[2024-05-27 09:03] VITALS: BP 127/84; PULSE 82; RESP 18; TEMP 36.4; O2SAT 97
[2024-05-27 09:34] LABS: TSH reflex Free T4 1.85 uIU/mL (0.32-4.0)
[2024-05-27 10:23] LABS: Influenza A PCR NEGATIVE (Negative); Influenza B PCR NEGATIVE (Negative); Resp Syncy Virus RNA Qual PCR NEGATIVE (Negative); SARS COV2 PCR INHOUSE NEGATIVE (Negative)
[2024-05-27 11:26] VITALS: BP 115/69; PULSE 81; RESP 18; TEMP 37; O2SAT 100
== END 2024-05-27 11:27 | disposition home or self-care (01) ==
PROVIDERS: Physician Assistant; Emergency Provider Emergency Medicine; PCP Internal Medicine
DX: I49.8 Other specified cardiac arrhythmias (principal); R00.2 Palpitations; R11.2 Nausea with vomiting, unspecified; F17.210 Nicotine dependence, cigarettes, uncomplicated; R10.2 Pelvic and perineal pain; Z79.899 Other long term (current) drug therapy; Z03.818 Encounter for observation for suspected exposure to other biological agents ruled out
CPT/HCPCS: 0241U; 36415; 71046; 80053; 83735; 84443; 84484; 84702; 85025; 85379; 85610; 93005; 99284; 99285

== ENCOUNTER → 2024-05-27 08:11 | Outpatient (BNV) | payer BC, SELFPAY | PROVIDERS: Emergency Provider Emergency Medicine; PCP Internal Medicine; Visit Provider Internal Medicine Cardiovascular Disease | DX: I49.9 Cardiac arrhythmia, unspecified (principal) | CPT/HCPCS: 93010 ==

== ENCOUNTER 2024-06-27 10:07 | Outpatient (AMB) | payer OTHER, SELFPAY ==
[2024-06-27 10:14] VITALS: BP 104/72; PULSE 77; BMI 40.0
--- NOTE | 2024-06-27 10:14 | A.OFFVIS_ITS ---
Vital Signs 06/27/24 10:14 Height 5 ft 3 in Weight 225 lb 12.054 oz BMI 40.0 BP 104/72 Blood Pressure Location Lt brachial Position Sitting Pulse 77 Pulse Source Pulse Oximeter Intake Visit Reasons: f/u PCOS/obesity Intake Note: Patient present today for PCOS/ Obesity follow up. Penetration Tester Required: No Accompanied by: Self / Same As Patient Allergies codeine [CODEINE] Allergy (Mild, Verified 06/27/24 10:18) NAUSEA & VOMITING naproxen [NAPROXEN] Allergy (Unknown, Verified 06/27/24 10:18) UNKNOWN HPI Comments Details: 39 yo female today for fup visit , for weight loss/PCOS. She is feeling better, She had to stop the oral contraceptive for hirsutism because of smoking and weight. She reports that after she stop the oral contraceptive her terminal her and acne has been getting worse. There is no risk for as her had vasectomy. She was able to lose 6 lb since last visit She tried the topiramate and Phentermine but she states make her depressed and irritable. 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 Workup for hirsutism was consistent with polycystic ovarian syndrome Currently on Wegovy 0.25 mg Q weekly Last visit her TSH was 2.5 and I decided to slightly increase the levothyroxine to 1 tablet Tuesday through Tuesday 1.5 tablets on Sundays She is currently on Levoxyl 137 mcg 100 % compliance with LT 4, method of administration is correct. Denies cold intolerance, stable weight regular periods, denies diarrhea, constipation, insomnia, fatigue, dry skin, dysphagia, dyspnea, dysphonia, tremors, occasional palpitations, denies irritability, anxiety. Laboratory Tests 02/20/20 08/21/20 10:13 14:20 TSH 1.24 Free T4 0.88 TSH 3rd Generation 2.53 Getting menses each mo . On sprinolactone . Helping with hair growth PFSH Medical History Vitamin D deficiency Asthma History of IBS Hirsutism Obesity (BMI 30-39.9) Hypothyroidism Surgical History Previous section Family History Paternal Grandmother Thyroid disease Father Hypertension Lung cancer Social History Household Members: Spouse and Children Household Members Other:: , 3 kids Alcohol intake: never Patient Tobacco Use Status: Current everyday Tobacco user Cigarette Packs Per Day: 0.5 Physical Exam Vital Signs: BMI result Body Mass Index 40.0 Assessment & Plan Assessment & Plan (1) Hirsutism: Code(s): L68.0 - Hirsutism Category: Medical Plan: Workup is consistent with polycystic ovarian syndrome. Patient was on a control pill was stopped because of smoking. Currently on spironolactone. Initiated by OBGYN Plan is continue the current management (2) Obesity (BMI 30-39.9): Code(s): E66.9 - Obesity, unspecified Category: Medical Plan: Was denied Wegovy by insurance plan. We will attempt to prescribe Zepbound 2.5 mg q.weekly . Went over side effects of Zepbound including but not limited to nausea, vomiting rare risk of pancreatitis. Also told patient not to become on Zepbound and dangers to the fetus of getting on the medication Medications: New tirzepatide (weight loss) (Zepbound) for 4 weeks 2.5 mg (0.5 mL) subcut QWEEK 2 mL 5RF Discontinued semaglutide (weight loss) (Wegovy) administer weeks 1 through 4 of therapy Discontinued Reason: Doctor's Order 0.25 mg (0.5 mL) subcut QWEEK 2 mL 4RF Coding Level of Care Code Est Pt Level 3 (82620) Diagnoses Hirsutism L68.0 Obesity (BMI 30-39.9) E66.9
== END 2024-06-27 10:48 | disposition home or self-care (01) ==
PROVIDERS: PCP Internal Medicine; Visit Provider Internal Medicine Endocrinology, Diabetes & Metabolism
DX: L68.0 Hirsutism (principal); E66.9 Obesity, unspecified
CPT/HCPCS: 99213

== ENCOUNTER → 2024-06-27 10:07 | Outpatient (BNVA) | payer OTHER, SELFPAY | PROVIDERS: PCP Internal Medicine; Visit Provider Internal Medicine Endocrinology, Diabetes & Metabolism | DX: E66.9 Obesity, unspecified (principal); L68.0 Hirsutism; F17.210 Nicotine dependence, cigarettes, uncomplicated; Z68.41 Body mass index [BMI] 40.0-44.9, adult | CPT/HCPCS: 99212 ==

== ENCOUNTER 2024-11-19 08:23 | Outpatient (AMB) | payer OTHER, SELFPAY ==
--- NOTE | 2024-11-19 08:29 | A.OFFVIS_ITS ---
Vital Signs 11/19/24 08:31 Height 5 ft 3 in Weight 226 lb 13.69 oz BMI 40.2 BP 102/70 Blood Pressure Location Rt brachial Position Sitting Pulse 82 Pulse Source Pulse Oximeter Pulse Oximetry (%) 97 Oxygen Delivery Method Room Air Intake Visit Reasons: F/u obesity. Intake Note: Patient present today for PCOS/ Obesity follow up. Patient reports she has not started the Zepbound 2.5 mg due to the cost, to expensive. Finance Insurance Manager Required: No Accompanied by: Self / Same As Patient Allergies codeine [CODEINE] Allergy (Mild, Verified 11/19/24 08:39) NAUSEA & VOMITING naproxen [NAPROXEN] Allergy (Unknown, Verified 11/19/24 08:39) UNKNOWN Medication List - Last Reconciled 11/19/24 by Ga Sorto MD albuterol sulfate 90 mcg/actuation inhalation cholecalciferol (vitamin D3) 25 mcg PO DAILY citalopram 20 mg PO DAILY escitalopram oxalate 10 mg PO DAILY ibuprofen 600 mg PO TID PRN ibuprofen 400 mg PO Q6H PRN Levoxyl (levothyroxine) 137 mcg PO DAILY NS loratadine 10 mg PO DAILY lorazepam (Ativan) 0.5 mg PO TID PRN 3 days methocarbamol 750 mg PO TID PRN spironolactone 50 mg PO DAILY tirzepatide (weight loss) (Zepbound) 2.5 mg (0.5 mL) subcut QWEEK HPI Comments Details: 39 yo female today for fup visit , for weight loss/PCOS. She is feeling better, She had to stop the oral contraceptive for hirsutism because of smoking and weight. She reports that after she stop the oral contraceptive her terminal her and acne has been getting worse. There is no risk for as her had vasectomy. She was able to lose 6 lb since last visit She tried the topiramate and Phentermine but she states make her depressed and irritable. 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 Workup for hirsutism was consistent with polycystic ovarian syndrome Currently on Wegovy 0.25 mg Q weekly Last visit her TSH was 2.5 and I decided to slightly increase the levothyroxine to 1 tablet Tuesday through Tuesday 1.5 tablets on Sundays She is currently on Levoxyl 137 mcg 100 % compliance with LT 4, method of administration is correct. Denies cold intolerance, stable weight regular periods, denies diarrhea, constipation, insomnia, fatigue, dry skin, dysphagia, dyspnea, dysphonia, tremors, occasional palpitations, denies irritability, anxiety. Laboratory Tests 02/20/20 08/21/20 10:13 14:20 TSH 1.24 Free T4 0.88 TSH 3rd Generation 2.53 Getting menses each mo . On sprinolactone . Helping with hair growth The patient is a 39-year-old female presenting with obesity and concerns regarding low blood pressure. The patient has attempted various weight management medications, such as Wegovy and Zepbound, but encountered insurance denials and prohibitive costs. Consequently, these medications have not been utilized, and the patient's weight remains a significant concern. Additionally, the patient reports dizziness associated with low blood pressure. She denies any current medication for this symptom. Her previous treatment history includes spironolactone for excessive hair growth. The patient reports persistent nausea and constipation linked to weight management interventions, although specific medications triggering these symptoms were not detailed. Thyroid function was not assessed in recent months, s. Despite no ongoing weight loss, the patient remains committed to addressing her weight and related symptoms. REPLACED BY [facility] Medical History Vitamin D deficiency Asthma History of IBS Hirsutism Obesity (BMI 30-39.9) Hypothyroidism Surgical History Previous section Family History Paternal Grandmother Thyroid disease Father Hypertension Lung cancer Social History Household Members: Spouse and Children Household Members Other:: , 3 kids Alcohol intake: never Patient Tobacco Use Status: Current everyday Tobacco user Cigarette Packs Per Day: 0.5 Physical Exam Vital Signs: Last Vital Signs Pulse 82 11/19/24 08:31 BP 102/70 11/19/24 08:31 Pulse Ox 97 11/19/24 08:31 Oxygen Delivery Method Room Air 11/19/24 08:31 BMI result Body Mass Index 40.2 Assessment & Plan Assessment & Plan (1) Hirsutism: Code(s): L68.0 - Hirsutism Category: Medical Plan: Workup is consistent with polycystic ovarian syndrome. Patient was on a control pill was stopped because of smoking. Currently on spironolactone. Initiated by OBGYN 1. Obesity We explored cost-effective alternatives for weight management medications such as a vial and syringe through [facility]. Future dose adjustments were discussed to optimize weight management outcomes, and potential side effects were noted. 2. Low Blood Pressure The patient was advised to follow up with her primary care provider for her blood pressure concerns and symptoms of dizziness. Further evaluation will ensure appropriate management. 3. Excessive Hair Growth The ongoing spironolactone regimen remains effective in managing hair growth issues. The patient had an opportunity to ask questions regarding treatment plan. The patient expressed understanding and agreement with the above treatment plan. Patient was informed and verbally consented to the use of an ambient scribe for clinic note documentation during this visit. (2) Obesity (BMI 30-39.9): Code(s): E66.9 - Obesity, unspecified Category: Medical Plan: 1. Obesity We explored cost-effective alternatives for weight management medications such as a vial and syringe through [facility]. Future dose adjustments were discussed to optimize weight management outcomes, and potential side effects were noted. Zepbound vial and syringe 2.5 mg was prescribed through [employer]. Patient was warned of side effects of Zepbound including but not limited to nausea, vomiting and rare risk of pancreatitis. Was warned not to become on the Zepbound. May titrate dose of Zepbound after 1 month if tolerated. Offered nutritional consult but patient declined I explained to the patient the current status of her weight management options, highlighting the financial constraints and alternative strategies such as using a vial and syringe through [facility]. We discussed gradual dose escalation depending on tolerance and response, with careful monitoring for side effects like nausea and pancreatitis. For low blood pressure concerns, I recommended she discuss these symptoms with her primary care provider. Continuing spironolactone was supported due to its effectiveness in managing her hair growth, with no adjustments needed at this time. Blood pressure taken today appeared to be normal but needs to be followed by primary care provider. 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 Currently on Levoxyl 137 mcg. We will recheck TSH and free T4 and adjust Levoxyl. If TSH normal, patient can follow up with primary care provider regarding hypothyroidism returned back to endocrinology as needed for this aspect Orders: Orders Thyroid Stimulating Hormone Today E03.8 - Other specified hypothyroidism, E06.3 - Autoimmune thyroiditis Free T4 (Free Thyroxine) Today E03.8 - Other specified hypothyroidism, E06.3 - Autoimmune thyroiditis Basic Metabolic Panel Today L68.0 - Hirsutism Medications: New tirzepatide (weight loss) (Zepbound) 2.5 mg (0.5 mL) subcut QWEEK 4 weeks 2 mL 4RF Discontinued tirzepatide (weight loss) (Zepbound) for 4 weeks Discontinued Reason: Doctor's Order 2.5 mg (0.5 mL) subcut QWEEK 2 mL 5RF Coding Level of Care Code Est Pt Level 3 (13983) Diagnoses Hirsutism L68.0 Obesity (BMI 30-39.9) E66.9 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
--- OUTSIDE RECORDS SUMMARY | 2024-11-19 08:29 | XMS_ITS | Clinical Summary ---
Author Organization [address] Address [address] [facility] [place] [id number] Phone Care Team Providers Care Spareribs Trimmer Name Role Phone Miguel Sin MD Primary Care Provider Allergies Active Allergy Reactions Criticality Noted Date Comments Codeine Nausea And Vomiting High 11/20/2011 Victor 11/29/2019 Oral allergy syndrome Naproxen Rash 11/27/2013 Other 11/29/2019 Melon- oral allergy sybdrome Medications loratadine (CLARITIN) 10 mg tablet Take 1 tablet (10 mg total) by mouth 1 (one) time each day. 2 Active tretinoin (RETIN-A) 0.025 % cream Apply small amount QHS 1 Active inhalat.spacing dev,large mask spacer Use with inhaler regularly 6 Active albuterol HFA (PROAIR HFA ; PROVENTIL HFA ; VENTOLIN HFA) 90 mcg/actuation inhaler Inhale 2 puffs by mouth. 6 Active cholecalciferol (VITAMIN D-3) 25 mcg (1,000 unit) tablet Take 1 tablet (1,000 Units total) by mouth 1 (one) time each day. Active citalopram (CeleXA) 20 mg tablet Take 1 tablet (20 mg total) by mouth 1 (one) time each day. 90 tablet 1 4 Active nicotine (NICODERM CQ) 14 mg/[address] 1 patch on the skin 1 (one) time each day at the same time. 30 each 1 5 Active levothyroxine (SYNTHROID, LEVOTHROID) 137 mcg tablet Take 1 tablet (137 mcg total) by mouth 1 (one) time each day before breakfast. Active Active Problems Problem Noted Date Diagnosed Date Tobacco dependence 04/02/2024 Elevated white blood cell count 04/02/2024 Class 2 obesity 04/02/2024 Mixed hyperlipidemia 06/14/2023 Acne vulgaris 02/15/2020 Overview (04/02/2024): Last Assessment & Plan: I offered referral back to Derm. She declined as has tried everything else. Explained combined OCP in women >35 yo who smoke is absolutely contraindicated due to risk of stroke. Explained should not restart combined OCP until at least a few months following smoking cessation. She voiced understanding and agreed. Will call to make an appt at that time. Seasonal allergic conjunctivitis 11/29/2019 Allergic contact dermatitis due to metals 2019 Adverse food reaction 11/29/2019 Photosensitivity 11/29/2019 Seasonal allergic rhinitis due to pollen 020 Lumbar radiculitis 01/24/2017 Fatty liver 11/29/2016 Hypothyroidism 04/28/[address] scan, pelvis 10/26/2013 Overview (04/02/2024): 10/24 - 4.1 cm low attenuation structure assoc with left ovary 11/27 - 2 cm left adenxal cyst noted IBS (irritable bowel syndrome) 02/21/2012 Vitamin D deficiency 08/08/2011 Anxiety and depression 12/28/2007 Overview (04/02/2024): Treated in past with Wellbutrin and Effexor No meds in Has therapist Encounters Date Type Department Care Team Description 09/03/2024 Telephone [facility] Hematology Oncology [address] [place] [address] Kwaku Kay MD from Last 3 Months Immunizations Name Administration Dates Next Due HPV, Quadrivalent 01/31/2007,09/20/2006,07/25/19 07 Hepatitis B (Rwqjvdx-E-Wigsg , Recombivax HB-Adult) 19yo and older 03/25/2010,10/21/2009,09/19/2009 Influenza Quadravalent, MDCK , 0.5ml, preservative free (Flucelvax) 6mo and older 03/18/2022,07/27/2018 Influenza trivalent, 0.5mL, preservative free (Fluarix; FluLaval; Fluzone) ages 6mo and older (Afluria) 3 years and older 02/09/2021,03/18/2020,03/13/2019,02/26,02/21/2012,02/18/2010,02/25/2009 ,04/01/2008 Influenza, Unspecified 03/13/2019 MMR, measles mumps and rubel la Live (Priorix; M-M-R II) 12mo and older 03/25/2010,09/19/2009 PPD Test 09/17/2009,10/11/2003 Pneumococcal polysaccharide 23 valent (Pneumovax 23) 2yo and older 05/04/2020 Tdap Tetanus diptheria acell ular pertussis (Boostrix; Adacel) 7yo and older 06/14/2023,12/12/2012,07/30/2008 Surgical History Surgery Date Site/Laterality Comments OTHER SURGICAL HISTORY LESION REMOVED L LEG PROCEDURE: ---- OTHER ---- SECTION 2012 PROCEDURE: HISTORICAL Medical History Medical History Date Comments Vitamin D deficiency 08/08/2011 DX:Vitamin D deficiency PCOS (polycystic ovarian syndrome) DX:PCOS (polycystic ovarian syndrome) Hypothyroidism DX:Hypothyroidis m Mixed hyperlipidemia DX:Mixed hy perlipidemia Family History Medical History Relation Name Comments Hypertension Father ?brain aneursym , sun sensitivity allergies Lung cancer Father Leukemia Father's side 1 great grandf ather Leukemia Father's side 2 cousin Heart attack Maternal Grandfather FATAL Heart attack Maternal Grandmother and parul ve replacement; diabetes Other: ENDOMETRIOSIS Mother cardiac murmur COPD Paternal Grandfather +smoker Heart attack Paternal Grandmother Other: cardiac issue Sister 1 Breast cancer Neg Hx Colon cancer Neg Hx Ovarian cancer Neg Hx Pancreatic cancer Neg Hx Prostate cancer Neg Hx Uterine cancer Neg Hx Relation Name Status Comments Brother Alive Daughter 1 Mack Alive Daughter 2 Jaimee Alive Father Alive Father's side 1 Father's side 2 Maternal Grandfather Maternal Grandmother Mother Alive Paternal Grandfather Paternal Grandmother Sister 1 Alive Sister 2 Alive Son Blaise Alive Social History Tobacco Use Types Packs/Day Years Used Date Smoking Tobacco: Every Day Cigarettes 0.5 31.4 Started: 06/29/1993 Smokeless Tobacco: Never Alcohol Use Standard Drinks/Week Comments No 0 (1 standard drink = 0.6 oz pur e alcohol) Comments Unknown Sex and Gender Information Value Date Recorded Sex Assigned at Not on file Legal Sex Female 3:00 PM EST Gender Identity Not on file Sexual Orientation Not on file Obstetrics History Last Filed Vital Signs Vital Sign Reading Time Taken Comments Blood Pressure 128/83 08/13/2024 11:47 AM EST Pulse 83 08/13/2024 11:47 AM EST Temperature 36.4 ??C (97.5 ??F) 08/13/2024 11:[address] Respiratory Rate 14 05/29/2024 11:44 AM EST Oxygen Saturation 100% 08/13/2024 11:47 AM EST Inhaled Oxygen Concentration - - Weight 103 kg (226 lb) 08/13/2024 11:47 AM EST Height 160 cm (5' 3 ) 08/13/2024 11:47 AM EST Body Mass Index 40.03 08/13/2024 11:47 AM EST Plan of Treatment Health Maintenance Due Date Last Done Comments Cervical Cancer Screening: HPV 2004 Pneumococcal Vaccine: Pediatrics (0 to 5 Years) and At-Risk Patients (6 to 64 Years) (2 of 2 - PCV) 05/04/2021 05/04/2020 HIV Screening 05/21/2022 Hepatitis C Screening 05/21/2022 Social Influencers of Health Screening 08/03/2023 08/03/2022 COVID-19 Vaccine ( season) 2024 04/28/2022, 07/03/2021, 12/02/2020, Additional history exists Depression Screening 12/29/2024 12/30/2023 Influenza Vaccine (Season Ended) 2025 03/18/2022, 02/09/2021, 03/18/2020, Additional history exists Breast Cancer Screening 10/23/2025 10/24/2023, 10/23 Cholesterol Screening (Lipid Panel) 04/01/2027 04/01/2022 DTaP,Tdap,and Td Vaccines (4 - Td or Tdap) 06/14/2033 06/14/2023, 12/12/2012, 07/30/2008 HPV Vaccines Completed 01/31/2007, 09/11, 07/25/2006 Hepatitis B Vaccines Completed 03/25/2010, 10/21/2009, 09/19/2009 MMR Vaccines Aged Out 03/25/2010, 09/19/2009 No lo nger eligible based on patient's age to complete this topic HIB Vaccines Aged Out No longer eligi ble based on patient's age to complete this topic Hepatitis A Vaccines Aged Out No long er eligible based on patient's age to complete this topic IPV Vaccines Aged Out No longer eligi ble based on patient's age to complete this topic Meningococcal ACWY Vaccine Aged Out N o longer eligible based on patient's age to complete this topic Meningococcal B Vaccine Aged Out No l onger eligible based on patient's age to complete this topic RSV Immunization Patients Under 20 months Aged Out No longer eligible based on patient's age to complete this topic Varicella Vaccines Aged Out No longer eligible based on patient's age to complete this topic Procedures Procedure Name Priority Date/Time Associated Diagnosis Comments BASIC METABOLIC PANEL Routine 10/01/2024 10:02 AM EDT Furuncle of chest wall Acne vulgaris Other atopic dermatitis SCREENING MAMMOGRAPHY BI 2-VIEW BREAST INC CAD Routine 10/24/2023 5:32 PM EDT Encounter for screening mammogram for malignant neoplasm of breast from Last 3 Months or Most Recently Relevant to Health Maintenance Results * Basic metabolic panel (10/01/2024 10:02 AM EDT) Sodium 140 133 - 145 mmol/L LAB CHEMISTRY METHOD 10/01/2024 3:32 PM EDT [facility] Potassium 4.9 3.5 - 5.5 mmol/L LAB CHEMISTRY METHOD 10/01/2024 3:32 PM EDT [facility] Chloride 107 96 - 110 mmol/L LAB CHEMISTRY METHOD 10/01/2024 3:32 PM EDT [facility] CO2 27 21 - 32 mmol/L LAB CHEMISTRY METHOD 10/01/2024 3:32 PM EDT [facility] Anion Gap 6 3 - 11 LAB CHEMISTRY METHOD 10/01/2024 3:32 PM [facility] Glucose 91 70 - 100 mg/dL LAB CHEMISTRY METHOD 10/01/2024 3:32 PM T [facility] BUN 11 5 - 25 mg/dL LAB CHEMISTRY METHOD [facility] Creatinine 0.73 0.50 - 1.10 mg/dL LAB CHEMISTRY METHOD [facility]24 [facility] eGFR 106 >=60 mL/min/1. 73m2 LAB CHEMISTRY METHOD 10/01/2024 3:32 PM EDT [facility] Comment:Calculation based on the??Chronic Kidney Disease Epidemiology Collaboration (CKD-EPI) equation refit??without adjustment for race. BUN/Creatinine Ratio 15.1 LAB CHEMISTRY METHOD 10/01/2024 3:32 PM EDT [facility] Calcium 9.4 8.5 - 10.5 mg/dL LAB CHEMISTRY METHOD 10/01/2024 3:32 PM EDT [facility] Blood Venous blood specimen / Unknown Venipuncture / Unknown 10/01/2024 10:02 AM EDT 10/01/2024 10:02 AM EDT us Kael Ramirez MD LAB BLOOD ORDERABLES Final Result [facility] [address] [place] [address], * SCREENING MAMMOGRAPHY BI 2-VIEW BREAST INC CAD (10/24/2023 5:32 PM EDT) Anatomical Region Laterality Modality Radiographic Jessica ging 06/14/2023 4:31 PM EST Narrative 10/25/2023 5:38 PM EDT This is a summary report. The complete report is available in the patient's medical record. If you cannot access the medical record, please contact the sending organization for a detailed fax or copy. Baseline screening, full field digital 2D C views and tomosynthesis mammography, reviewed with CAD. ??The breasts are composed of fatty and fibroglandular tissue. ??No suspicious mass, architectural distortion or suspicious calcifications are identified. IMPRESSION: : No mammographic evidence of malignancy. BIRADS 1-Negative; N. 5 year breast cancer risk assessment 0.4 % Lifetime breast cancer risk assessment 8.0 % Breast cancer risk category Low (<15%) Procedure Note Gabriella Ragland MD - 01/30/2024 This is a summary report. The complete report is available in thepatient's medical record. If you cannot access the medical record, pleasecontact the sending organization for a detailed fax or copy. Baseline screening, full field digital 2D C views and tomosynthesismammography, reviewed with CAD. The breasts are composed of fatty andfibroglandular tissue. No suspicious mass, architectural distortion orsuspicious calcifications are identified. IMPRESSION: : No mammographic evidence of malignancy. BIRADS 1-Negative; N. 5 year breast cancer risk assessment 0.4 % Lifetime breast cancer risk assessment 8.0 % Breast cancer risk category Low (<15%) Miguel Sin MD IMG XR PROCEDURES Final Res ult from Last 3 Months or Most Recently Relevant to Health Maintenance Insurance [employer] Care Teams Spareribs Trimmer Relationship Specialty Start Date End Date Miguel Sin MD [address] [place] [address] PCP - General Internal Medicine 09/14/21
[2024-11-19 08:31] VITALS: BP 102/70; PULSE 82; O2SAT 97; BMI 40.2
== END 2024-11-19 09:02 | disposition home or self-care (01) ==
LOC: HO.ENCR 08:24
PROVIDERS: PCP Internal Medicine; Visit Provider Internal Medicine Endocrinology, Diabetes & Metabolism
DX: L68.0 Hirsutism (principal); E66.9 Obesity, unspecified; E03.8 Other specified hypothyroidism; E06.3 Autoimmune thyroiditis
CPT/HCPCS: 99213

== ENCOUNTER → 2024-11-19 08:23 | Outpatient (BNVA) | payer OTHER, SELFPAY | PROVIDERS: PCP Internal Medicine; Visit Provider Internal Medicine Endocrinology, Diabetes & Metabolism | DX: L68.0 Hirsutism (principal); E06.3 Autoimmune thyroiditis; E66.9 Obesity, unspecified; E03.8 Other specified hypothyroidism | CPT/HCPCS: 99212 ==

== ENCOUNTER 2024-11-19 09:02 | Outpatient (REF) | payer OTHER, SELFPAY ==
[2024-11-19 10:19] LABS: Anion Gap 8 (12-20); Blood Urea Nitrogen 12 mg/dL (9-16); Calcium 9.1 mg/dL (8.4-10.2); Carbon Dioxide 26 mmol/L (22-29); Chloride 108 mmol/L (96-108); Estimated Glomerular Filt Rate > 60; Glucose Random 88 mg/dL (60-115); Sodium 138 mmol/L (135-145)
[2024-11-19 10:40] LABS: Free T4 (Free Thyroxine) 1.13 ng/dL (0.71-1.85); Thyroid Stimulating Hormone 0.93 uIU/mL (0.32-4.0)
== END 2024-11-19 09:03 | disposition home or self-care (01) ==
LOC: HO.10HDL 09:02
PROVIDERS: Visit Provider Internal Medicine Endocrinology, Diabetes & Metabolism
DX: L68.0 Hirsutism (principal); E03.8 Other specified hypothyroidism; E06.3 Autoimmune thyroiditis
CPT/HCPCS: 36415; 80048; 84439; 84443